=== PATIENT | female | born 1960 | race Caucasian/White ===

== ENCOUNTER 2022-07-01 16:32 | Emergency (ER) | payer BC, OTHER ==
[~2022-07-01] VITALS: Ht 167.6 cm; Wt 72.6 kg
[~2022-07-01 16:32] MED LIST: ESCI20TA PO; LAMO100T17 PO; LISD70CA PO; METH10TA PO
--- NOTE | 2022-07-01 17:50 | NUR ---
URINE SAMPLE COLLECTED AND SENT TO LAB
--- NOTE | 2022-07-01 17:54 | NUR ---
DR FAITH AT BEDSIDE W/ PT. MADE AWARE THAT PT WANTS TO LEAVE AMA AND WILL JUST SEE A PSYCH DOCTOR TOMORROW. PT DENIES SI/HI AT THIS TIME. PREVIOUSLY REFUSED BLOOD DRAW AND STATES THAT SHE DOES NOT WANT TO BE ADMITTED; PT CURRENTLY NOT ON AN INVOLUNTARY PSYCH HOLD.
--- NOTE | 2022-07-01 18:00 | NUR ---
NOT AMA PER DR. FAITH; NIGHAT PER IF PT REFUSED BLOOD DRAW. WILL D/C PT ACCORDINGLY.
[2022-07-01 18:09] VITALS: BP 127/85
--- NOTE | 2022-07-01 18:19 | NUR ---
Patient discharged to home in stable condition. Written and verbal after care instructions given. Patient verbalizes understanding of instruction.
[2022-07-01 18:25] LABS: BILIRUBIN,URINE NEGATIVE (NEGATIVE); COLOR,URINE YELLOW (YELLOW); LEUKOCYTE ESTERASE ,URINE NEGATIVE (NEGATIVE); NITRITE, URINE NEGATIVE (NEGATIVE); PROTEIN,URINE NEGATIVE (NEGATIVE); UGLUCOSE NEGATIVE (NEGATIVE); UROBILINOGEN,URINE 0.2 EU/dL (0.2)
== END 2022-07-01 18:19 | disposition home or self-care (01) ==
LOC: ER 16:35
DX: F32.A Depression, unspecified (principal); F43.9 Reaction to severe stress, unspecified; F41.9 Anxiety disorder, unspecified; F98.8 Other specified behavioral and emotional disorders with onset usually occurring in childhood and adolescence; Z98.890 Other specified postprocedural states; Z79.899 Other long term (current) drug therapy